=== PATIENT | female | born 1985 | race African-American/Black ===

== ENCOUNTER 2016-05-21 10:48 | Emergency (ER) | payer MEDICAID ==
[2016-05-21 13:21] LABS: CREATININE - SERUM 0.7 mg/dL (0.6-1.3)
== END 2016-05-21 15:24 | disposition home or self-care (01) ==
LOC: D.ER 10:48
PROVIDERS: Physician Assistant
DX: R07.81 Pleurodynia (principal)

== ENCOUNTER → 2018-06-10 07:57 | Outpatient (CLI) | payer MEDICAID ==
[~2018-06-10 07:57] MED LIST: TAMIFLU75 MG PO
== END | disposition home or self-care (01) ==
LOC: D.MRI 06-06 08:30
DX: M25.561 Pain in right knee (principal)

== ENCOUNTER 2018-06-17 09:53 | Emergency (ER) | payer MEDICAID ==
[~2018-06-17] VITALS: Ht 154.9 cm; Wt 69.5 kg
[2018-06-17 10:13] VITALS: BP 128/82; Ht 154.9 cm; Wt 69.5 kg
[2018-06-17] MEDS ORDERED: TAMIFLU75 MG PO (11:55)
== END 2018-06-17 13:00 | disposition home or self-care (01) ==
LOC: D.ER 09:53
DX: J00 Acute nasopharyngitis [common cold] (principal); R05 Cough; R09.89 Other specified symptoms and signs involving the circulatory and respiratory systems

== ENCOUNTER 2018-09-30 05:55 | Emergency (ER) | payer MEDICAID ==
[2018-09-30 05:59] VITALS: BP 118/66; BMI 28.9
[2018-09-30] MEDS ORDERED: CYCLOBENZAPRINE10 MG PO (06:11)
[2018-09-30 06:43] LABS: APPEARANCE HAZY (CLEAR); BILIRUBIN NEGATIVE (NEGATIVE); COLOR YELLOW (YELLOW); GLUCOSE NEGATIVE (NEGATIVE); KETONE NEGATIVE (NEGATIVE); NITRITE NEGATIVE (NEGATIVE); PROTEIN NEGATIVE (NEGATIVE); SPECIFIC GRAVITY 1.015 (1.005-1.020); UROBILINOGEN NORMAL (NORMAL)
[2018-09-30 07:10] LABS: HCG URINE NEGATIVE (NEGATIVE)
[2019-01-08 10:35] VITALS: BMI 32.6
== END 2018-09-30 08:26 | disposition home or self-care (01) ==
LOC: D.ER 05:55
PROVIDERS: Family Medicine
DX: S29.012A Strain of muscle and tendon of back wall of thorax, initial encounter (principal); X58.XXXA Exposure to other specified factors, initial encounter; Y93.89 Activity, other specified; Y92.89 Other specified places as the place of occurrence of the external cause

== ENCOUNTER 2019-01-08 08:20 | Day surgery (SDC) | payer MEDICAID ==
[2019-01-07 14:25] LABS: BASOPHILS 0.3 % (0-2); EOSINOPHILS 0.5 % (0-7); HEMOGLOBIN 12.3 g/dL (12-16); IMMATURE GRANULOCYTES 0.3 % (0-5); LYMPHOCYTES 32.2 % (15-50); MCH 30.8 pg (26.0-34.0); MCHC 34.2 g/dL (31.0-37.0); MEAN PLATELET VOLUME 11.1 fL (7.4-10.4); MONOCYTES 9.7 % (2-11); PLATELET COUNT 187 10x3/uL (130-400); RDW 12.8 % (11.5-14.5); WBC 6.4 10x3/uL (4.8-10.8)
[~2019-01-08] VITALS: Ht 157.5 cm; Wt 80.7 kg
--- NOTE | ~2019-01-08 | OP ---
PATIENT NAME: JORDYN RIVAS MEDICAL RECORD: [id number] :85 LOCATION:D.OPS ADMISSION DATE: SURGEON: KARIE GODFREY DO DATE OF OPERATION: 01/08/2019 PREOPERATIVE DIAGNOSIS: Missed . POSTOPERATIVE DIAGNOSIS: Missed . PRIMARY SURGEON: Karie Godfrey DO ANESTHESIA: Juno Grant CRNA PROCEDURE: Suction dilation and curettage. FINDINGS: Normal appearing external genitalia, normal appearing vaginal vault. SPECIMENS: Products of conception. ESTIMATED BLOOD LOSS: 5 cc. IV FLUIDS: 650 cc. COMPLICATIONS: None. CONDITION: Stable. DESCRIPTION OF PROCEDURE: The risks, benefits, alternatives and indications of the procedure were discussed with the patient. She voiced the understanding of the procedure and signed the consent. She was taken to the OR where general anesthesia was administered and found to be adequate. She was placed in the dorsal lithotomy position. She was prepped and draped in the normal sterile fashion. A speculum was placed in the posterior aspect of the vagina and a single tooth tenaculum was used to grasp the anterior lip of the cervix. The cervix was dilated to accommodate an 8 mm curved suction curette. A clockwise suction curettage was performed and products of conception were noted being removed from the uterus. A gentle sharp curettage was performed to ensure all products of conception were removed from the uterus. One more pass of the suction curette was performed until no products of conception were noted. All the suction curette was removed from the uterus. The tenaculum was removed from the cervix. Mild bleeding noted from the right tenaculum site, which was hemostatic with the application of silver nitrate. Otherwise, hemostasis was adequate. All other instruments were removed from the vagina. All lap, sponge, needle, and instrument counts were correct times 2. The patient tolerated the procedure well and she was taken to recovery room in stable condition. TRANSINT:[id number] Voice Confirmation ID: [id number] DOCUMENT ID: [id number] OPERATIVE REPORT [id number] JORDYN RIVAS KARIE GODFREY DO CC: [id number] DICTATION DATE: 01/08/19 1244 ACCOUNTS RECEIVABLE ACCOUNTANT: 01/08/19 1322 [facility] [address] [place] [address]
[~2019-01-08 08:20] MED LIST changes: +CYCLOBENZAPRINE10 MG PO
[2019-01-08 10:35] VITALS: BP 93/43; Ht 157.5 cm; Wt 80.7 kg
--- NOTE | 2019-01-08 15:34 | NUR ---
1345 MEDICATED WITH TYLENOL PER REQUEST FOR PAIN. 1445 PAIN EASING VOIDED
== END 2019-01-08 14:45 | disposition home or self-care (01) ==
LOC: D.OPS 08:20 → D.PAN 10:45 → D.OPS 10:45
PROVIDERS: ATTEND Student in an Organized Health Care Education/Training Program
DX: O02.1 Missed abortion (principal)

== ENCOUNTER → 2019-07-02 07:37 | Outpatient (CLI) | payer MEDICAID ==
[2019-01-08 10:35] VITALS: BMI 32.6
== END | disposition home or self-care (01) ==
LOC: D.RAD 07:37 → D.MRI 09:00
PROVIDERS: ATTEND Orthopaedic Surgery
DX: S49.91XA Unspecified injury of right shoulder and upper arm, initial encounter (principal); X58.XXXA Exposure to other specified factors, initial encounter

== ENCOUNTER 2019-08-10 16:40 | Emergency (ER) | payer MEDICAID ==
[2019-08-10 16:46] VITALS: Ht 157.5 cm
[2019-08-10 17:05] LABS: BASOPHILS 0.2 % (0-2); EOSINOPHILS 0.2 % (0-7); HEMOGLOBIN 14.6 g/dL (12-16); IMMATURE GRANULOCYTES 0.4 % (0-5); LYMPHOCYTES 26.4 % (15-50); MCH 30.7 pg (26.0-34.0); MCHC 33.2 g/dL (31.0-37.0); MCV 92.6 fL (80.0-100.0); MEAN PLATELET VOLUME 10.9 fL (7.4-10.4); MONOCYTES 10.3 % (2-11); NEUTROPHILS 62.5 % (40-80); RBC 4.75 10x6/uL (4.00-5.40); RDW 12.4 % (11.5-14.5); WBC 8.5 10x3/uL (4.8-10.8)
[2019-08-10 17:06] LABS: PLATELET COUNT 242 10x3/uL (130-400)
[2019-08-10 17:09] LABS: BILIRUBIN NEGATIVE (NEGATIVE); GLUCOSE NEGATIVE (NEGATIVE); KETONE LARGE mg/dL (NEGATIVE); NITRITE NEGATIVE (NEGATIVE); UROBILINOGEN NORMAL (NORMAL)
[2019-08-10 17:11] LABS: BACTERIA MANY /hpf (NEGATIVE); RED CELLS - URINE 0-5 /hpf (0-5); WHITE CELLS - URINE 0-5 /hpf (NEGATIVE)
[2019-08-10 17:17] LABS: CALC OSMOLALITY 263 mosm/kg (275-300); CALCIUM 9.5 mg/dL (8.5-10.1); CARBON DIOXIDE 25.3 mmol/L (21.0-32.0); CHLORIDE - SERUM 96 mmol/L (98-107); CREATININE - SERUM 0.9 mg/dL (0.6-1.3); GLUCOSE 98 mg/dL (74-106); POTASSIUM - SERUM 3.2 mmol/L (3.5-5.1); SODIUM 132 mmol/L (136-145); UREA NITROGEN 11 mg/dL (7-18); eGFR NON AFRICAN AMERICAN 76 mL/min (90-120)
[2019-08-10 17:48] LABS: ALBUMIN 4.2 g/dL (3.4-5.0); ALKALINE PHOSPHATASE 54 U/L (30-120); ALT (SGPT) 19 U/L (10-68); BILIRUBIN - TOTAL 0.59 mg/dL (0.2-1.3); HCG - QUANTITATIVE (MATERNAL) 88877 mIU/mL; PROTEIN - SERUM 8.7 g/dL (6.4-8.2)
[2019-08-10] MEDS ORDERED: ZOFRAN ODT4 MG/UDTAB PO (18:19)
[2019-08-10] MEDS ORDERED: KEFLEX500 MG PO (18:19)
[2019-08-10 19:15] VITALS: BP 118/79
== END 2019-08-10 19:17 | disposition home or self-care (01) ==
LOC: D.ER 16:40
PROVIDERS: Family Medicine
DX: O21.1 Hyperemesis gravidarum with metabolic disturbance (principal); Z3A.09 9 weeks gestation of pregnancy; F41.9 Anxiety disorder, unspecified

== ENCOUNTER 2019-08-14 10:48 | Observation (INO) | payer MEDICAID ==
[~2019-08-14] VITALS: Ht 157.5 cm; Wt 74.4 kg
[~2019-08-14 10:48] MED LIST changes: +KEFLEX500 MG PO; +ZOFRAN ODT4 MG/UDTAB PO
[2019-08-14 11:29] LABS: BASOPHILS 0.6 % (0-2); EOSINOPHILS 0.4 % (0-7); HEMATOCRIT 40.8 % (36.0-48.0); HEMOGLOBIN 13.5 g/dL (12-16); IMMATURE GRANULOCYTES 0.2 % (0-5); LYMPHOCYTES 30.1 % (15-50); MCH 30.6 pg (26.0-34.0); MCHC 33.1 g/dL (31.0-37.0); MCV 92.5 fL (80.0-100.0); MEAN PLATELET VOLUME 10.8 fL (7.4-10.4); MONOCYTES 9.5 % (2-11); NEUTROPHILS 59.2 % (40-80); PLATELET COUNT 225 10x3/uL (130-400); RBC 4.41 10x6/uL (4.00-5.40); RDW 12.3 % (11.5-14.5); WBC 5.5 10x3/uL (4.8-10.8)
[2019-08-14 11:35] LABS: CALC OSMOLALITY 265 mosm/kg (275-300); CALCIUM 8.7 mg/dL (8.5-10.1); CARBON DIOXIDE 23.9 mmol/L (21.0-32.0); CHLORIDE - SERUM 97 mmol/L (98-107); CREATININE - SERUM 0.7 mg/dL (0.6-1.3); GLUCOSE 91 mg/dL (74-106); POTASSIUM - SERUM 3.2 mmol/L (3.5-5.1); SODIUM 134 mmol/L (136-145); UREA NITROGEN 7 mg/dL (7-18); eGFR NON AFRICAN AMERICAN > 90 mL/min (90-120)
[2019-08-14 11:41] LABS: ALBUMIN 3.9 g/dL (3.4-5.0); ALKALINE PHOSPHATASE 47 U/L (30-120); ALT (SGPT) 17 U/L (10-68); BILIRUBIN - TOTAL 0.54 mg/dL (0.2-1.3); LIPASE 52 U/L (73-393); PROTEIN - SERUM 7.7 g/dL (6.4-8.2)
[2019-08-14 13:19] VITALS: BP 120/60
[2019-08-14 13:25] LABS: BACTERIA MODERATE /hpf (NEGATIVE); BILIRUBIN NEGATIVE (NEGATIVE); GLUCOSE NEGATIVE (NEGATIVE); KETONE LARGE mg/dL (NEGATIVE); NITRITE NEGATIVE (NEGATIVE); RED CELLS - URINE RARE /hpf (0-5); SPECIFIC GRAVITY 1.015 (1.005-1.020); UROBILINOGEN 4 mg/dL (NORMAL); WHITE CELLS - URINE 0-5 /hpf (NEGATIVE)
[2019-08-14 13:49] LABS: UDS - AMPHET NEGATIVE QUAL (NEGATIVE); UDS - BARB NEGATIVE QUAL (NEGATIVE); UDS - BENZO NEGATIVE QUAL (NEGATIVE); UDS - COCAINE NEGATIVE QUAL (NEGATIVE); UDS - OPIATE NEGATIVE QUAL (NEGATIVE); UDS - PCP NEGATIVE QUAL (NEGATIVE); UDS - THC POSITIVE QUAL (NEGATIVE)
--- NOTE | 2019-08-14 14:55 | NUR ---
SPOKE WITH LAB, TECH STATED BLOOD ON THIS PATIENT WAS IN THE LAB AND COULD BE USED TO PERFORM THE FOLLOWING TEST.
--- NOTE | 2019-08-14 15:29 | NUR ---
PT RECEIVED FROM U/S VIA W/C TO ROOM 1278. PT TRANSFERS FROM W/C TO BED AMBULATORY WITHOUT ASSIST. PT VOMITING, DENIES ANY DRUG ALLERGIES. WILL NOTIFY MD PT STILL VOMITING.
--- NOTE | 2019-08-14 15:38 | NUR ---
DR GODFREY PHONED WITH IMMEDIATE CALLBACK. REPORT GIVEN. ORDERS RECEIVED.
[2019-08-14 15:51] VITALS: BP 123/64
--- NOTE | 2019-08-14 15:51 | NUR ---
NS WITH KCL D/C'D PER ORDER. FLUSHED. PHENERGAN ADMIN SLOW IVP ORDERED. FLUSHED WITH 20ML NS. PT DENIES FEELING DIZZY, WANTS UP TO BR TO VOID AND FOR PERICARE FROM URINE LEAKAGE WITH VOMITING. PT TO BR TO CLEAN SELF, DENIES NEED FOR ASSIST. PT INSTRUCTED TO PULL CORD IF DIZZY OR IN NEED OF ASSIST. UNDERSTANDING VERBALIZED.
--- NOTE | 2019-08-14 15:51 | NUR ---
VSS, SEE FLOWSHEET.
--- NOTE | 2019-08-14 16:20 | NUR ---
DR GODFREY GIVES VERBAL ORDERS FOR PROTONIX DAILY AND TSH LAB TO BE DRAWN. ORDER TO CALL WITH U/S WHEN RESULTED.
--- NOTE | 2019-08-14 16:21 | NUR ---
DR GODFREY TO PT'S ROOM FOR ROUNDING, DISCUSSING POC.
--- NOTE | 2019-08-14 16:28 | NUR ---
DR GODFREY PHONED WITH U/S REPORT. NO NEW ORDERS RECEIVED.
[2019-08-14 16:56] VITALS: BP 123/64; Ht 157.5 cm; Wt 74.4 kg
--- NOTE | 2019-08-14 17:05 | NUR ---
ADMISSION ASSESSMENT AND HISTORY COMPLETED. PT PROVIDED WITH WARM BLANKET PER REQUEST, STATES SHE FEELS MUCH BETTER AFTER PHENERGAN. PT LYING IN BED ON LEFT SIDE, LIGHTS DIMMED FOR REST. SRUx2, CL IN REACH. PT INSTRUCTED TO CALL FOR ANY NEEDS. WILL CONT TO MONITOR.
--- NOTE | 2019-08-14 18:20 | NUR ---
LIZBET, RN TO PT ROOM FOR IV ALARM, IV PUMP FIXED. PT DENIES NEEDS AT THIS TIME. SRUx2, CL IN REACH.
[2019-08-14 20:08] VITALS: BP 109/55
--- NOTE | 2019-08-14 20:40 | NUR ---
ASSESSMENT COMPLETED. MVU IVF PAUSED, D51/2 NS UP TO INFUSE PER ORDER OF PHARMACY TO ALLOW FOR FLAGYL, AND REGLAN INFUSING, MV FLUID TUBING DISCONNECTED FROM SL AND SL FLUSHED, PRIOR TO HANGING D1/2 NS AND GIVING REGLAN FOLLOWED BY FLAGYL. PT C/O NAUSEA, COMFORT MEASURES GIVEN
--- NOTE | 2019-08-14 21:43 | NUR ---
flagyl completed infusion, so d5 1/2 ns paused and mv ivf restarted at 125ml/hr
--- NOTE | 2019-08-14 22:49 | NUR ---
room check, resting quietly, respirations even and unlabored, eyes closed, ivf infusing at 125ml/hr via pump, did not disturb
--- NOTE | 2019-08-14 23:57 | NUR ---
phenergan given iv following pausing of ivf, flushing line w/ ns before and after administration. pt resting quietly, respirations even and unlabored
--- NOTE | 2019-08-15 01:30 | NUR ---
at bedside, pt resting quietly w/ covers head, respirations even and unlabored. w/o signs of distress. did not disturb
--- NOTE | 2019-08-15 02:22 | NUR ---
multi vitamin ivf completed, d5 1/2 ns infusing at 125ml/hr. pt arouses easily to touch, denies needs at this time
--- NOTE | 2019-08-15 04:30 | NUR ---
room check, resting quietly w/ eyes closed, respirations even and unlabored, did not disturb
[2019-08-15 07:55] VITALS: BP 95/51
--- NOTE | 2019-08-15 08:10 | NUR ---
TO PT'S ROOM FOR AM ASSESSMENT, PT IS LYING ON HER RIGHT SIDE, ASLEEP, AWAKENED FOR AM ASSESSMENT. PT HAS IV TO LEFT AC, INFUSING IVF'S PER ORDER. NO REDNESS OR SWELLING NOTED TO IV SITE, DENIES PAIN TO IV SITE. PT PROVIDED WITH EMESIS BAGS X 2. PT HAS NOT VOMITED ON THIS SHIFT. PT STATES "I FEEL A LITTLE BETTER THIS MORNING, BUT I HAVE BEEN PUKING FOR 3 WEEKS. I WENT TO THE ER ON SUNDAY AND THEY GAVE ME 2 BAGS OF FLUIDS, AND SENT ME HOME ON . IT WORKED FOR A COUPLE OF DAYS, BUT THEN IT QUIT WORKING." SEE FLOWSHEET FOR AM ASSESSMENT. PT PROVIDED WITH TOOTHBRUSH/PASTE, BABY SHAMPOO, WASHCLOTHS, AND GOWN. SR UP X2, CALL LIGHT AND PHONE WITHIN REACH.
--- NOTE | 2019-08-15 08:10 | NUR ---
NATHALIE FROM SURGERY CALLS TO UNIT, TELEPHONE ORDER RECEIVED TO ADMINISTER PEPCID 20 MG IV Q 12 H, DR. ZEE.
--- NOTE | 2019-08-15 08:25 | NUR ---
PT CALLS OUT [employer] AND REQUESTS TO GET IN THE SHOWER. TO ROOM, IV SL AND SECURED.
--- NOTE | 2019-08-15 09:30 | NUR ---
DR. ZEE TO ROOM, SPEAKING WITH PT. WILL START NEW PO MEDICATION REGIMEN, PT AGREES. SR UP X 2, CALL LIGHT AND PHONE WITHIN REACH.
--- NOTE | 2019-08-15 18:30 | NUR ---
PT UP TO SHOWER, CLEAN LINENS PROVIDED. BED LINENS CHANGED. PT HAS HAD SMALL AMOUNT OF CLEAR EMESIS INTO EMESIS BAG.
[2019-08-15 19:55] VITALS: BP 127/61
--- NOTE | 2019-08-15 20:24 | NUR ---
assessment completed, pt states is feeling much relief tonight. madison pain, nausea, or vomiting since around 0630 this morning. able to eat and drink and keep things down w/o difficulty. informed she would rec antiemtics as scheduled to prevent reoccurance tonight. pt agreeable to all procedures.
--- NOTE | 2019-08-15 21:35 | NUR ---
AT BEDSIDE. DENIES DISCOMFORT, IVF INFUSING AT 125ML/HR, DENIES NEEDS AT THIS TIME
--- NOTE | 2019-08-15 22:45 | NUR ---
resting quietly in right lateral position, eyes closed, respirations even and unlabored. w/o signs of distress. did not disturb
--- NOTE | 2019-08-16 00:05 | NUR ---
in room for dialysis biomed technician. pt restful. denies need for further intervention
--- NOTE | 2019-08-16 02:30 | NUR ---
room check, pt resting quietly, eyes closed, arouses easily to name called.
--- NOTE | 2019-08-16 04:10 | NUR ---
resting quietly in right lateral position, respirations even and unlabored. did not disturb
--- NOTE | 2019-08-16 06:37 | NUR ---
continues resting quietly w/o c/o pain or discomfort, arouses easily to name called. no needs voiced at this time.
[2019-08-16 07:02] VITALS: BP 105/57
--- NOTE | 2019-08-16 07:02 | NUR ---
AM ASSESSMENT COMPLETED, TOLERATING LIQUIDS WITHOUT DIFFICULTY, RESP EVEN AND UNLABORED, HEART RRR, LUNGS CTAB, ABD SOFT NONDISTENDED, NO TENDERNESS TO LIGHT PALPATION, BOWEL SOUNDS NORMOACTIVE, VOIDING WITHOUT DIFFICULTY, PASSING FLATUS, C[place] FREELY, NEGATIVE DANISHA'S SIGN B LE, PEDAL PULSES STRONG/=+2 B. REVIEWED PLAN OF CARE, STATES LOOKING FORWARD TO GOING HOME TODAY, PT STATES UNDERSTANDING OF ALL INFORMATION REVIEWED. CALL LIGHT IN EASY REACH, BED IN LOW POSITION, BED BRAKES LOCKED, SIDE RAILS UP X2. WILL MONITOR FOR CHANGE IN CONDITION.
--- NOTE | 2019-08-16 08:48 | NUR ---
dr iraheta rounding and to pt room; plan of care reviewed, pt states understanding. nad noted. will monitor.
[2019-08-16] MEDS ORDERED: UNISOM SLEEP AI25 MG PO (09:11)
[2019-08-16] MEDS ORDERED: ZOFRAN ODT4 MG/UDTAB PO (09:13)
[2019-08-16] MEDS ORDERED: VITAMIN B-625 MG PO (09:14)
[2019-08-16] MEDS ORDERED: PEPCID40 MG (09:24)
--- NOTE | 2019-08-16 09:28 | NUR ---
ROUNDS COMPLETED, PT LYING IN BED WITHOUT C/O N/V OR ANY DISTRESS. STATES DAUGHTER IS COMING TO HELP HER SHOWER AND THEN SHE WOULD LIKE TO GO HOME. ADMINISTERED PRESCRIBED MEDICATIONS DUE AT THIS TIME. WILL MONITOR FOR NEEDS AND CONCERNS OR CHANGE IN CONDITION.
--- NOTE | 2019-08-16 10:41 | NUR ---
piv discontinued, catheter tip intact, pressure dressing applied to left a/c, pt tolerates procedure well. reviewed discharge instructions and pt is aware that her medication were called into her pharmacy of choice per dr iraheta, reviewed medication orders and handouts provided on bacterial vaginosis and hyperemesis gravidarum. pt states understanding of all information provided.
--- NOTE | 2019-08-16 10:52 | NUR ---
discharged pt via wheelchair to private auto in care of family member. nad noted at this time.
== END 2019-08-16 10:45 | disposition home or self-care (01) ==
LOC: D.ER 10:48 → OBSVTIME 13:46 → D.LD 13:46
PROVIDERS: Family Medicine; ADMIT Student in an Organized Health Care Education/Training Program; ATTEND Student in an Organized Health Care Education/Training Program
DX: O21.9 Vomiting of pregnancy, unspecified (principal); Z3A.08 8 weeks gestation of pregnancy; O30.001 Twin pregnancy, unspecified number of placenta and unspecified number of amniotic sacs, first trimester

== ENCOUNTER 2019-08-22 18:27 | Observation (INO) | payer MEDICAID ==
[~2019-08-22] VITALS: Ht 157.5 cm; Wt 75.9 kg
[~2019-08-22 18:27] MED LIST changes: +PEPCID40 MG; +UNISOM SLEEP AI25 MG PO; +VITAMIN B-625 MG PO
[2019-08-22 19:31] LABS: BASOPHILS 0.1 % (0-2); EOSINOPHILS 0.1 % (0-7); HEMATOCRIT 44.5 % (36.0-48.0); HEMOGLOBIN 14.7 g/dL (12-16); IMMATURE GRANULOCYTES 0.3 % (0-5); LYMPHOCYTES 28.9 % (15-50); MCH 30.7 pg (26.0-34.0); MCV 92.9 fL (80.0-100.0); MEAN PLATELET VOLUME 10.5 fL (7.4-10.4); MONOCYTES 8.6 % (2-11); RBC 4.79 10x6/uL (4.00-5.40); RDW 12.7 % (11.5-14.5); WBC 7.8 10x3/uL (4.8-10.8)
[2019-08-22 19:42] LABS: CALC OSMOLALITY 264 mosm/kg (275-300); CALCIUM 9.5 mg/dL (8.5-10.1); CHLORIDE - SERUM 96 mmol/L (98-107); CREATININE - SERUM 0.9 mg/dL (0.6-1.3); GLUCOSE 95 mg/dL (74-106); POTASSIUM - SERUM 3.5 mmol/L (3.5-5.1); SODIUM 133 mmol/L (136-145); UREA NITROGEN 11 mg/dL (7-18); eGFR NON AFRICAN AMERICAN 76 mL/min (90-120)
[2019-08-22 19:46] LABS: BILIRUBIN NEGATIVE (NEGATIVE); GLUCOSE NEGATIVE (NEGATIVE); KETONE LARGE mg/dL (NEGATIVE); NITRITE NEGATIVE (NEGATIVE); SPECIFIC GRAVITY 1.025 (1.005-1.020); UROBILINOGEN NORMAL (NORMAL)
[2019-08-22 19:47] LABS: RED CELLS - URINE OCC /hpf (0-5); WHITE CELLS - URINE 0-5 /hpf (NEGATIVE)
[2019-08-22 19:48] LABS: ALBUMIN 4.3 g/dL (3.4-5.0); ALKALINE PHOSPHATASE 50 U/L (30-120); ALT (SGPT) 32 U/L (10-68); BACTERIA MODERATE /hpf (NEGATIVE); BILIRUBIN - TOTAL 0.54 mg/dL (0.2-1.3); PROTEIN - SERUM 8.9 g/dL (6.4-8.2)
[2019-08-22 19:52] LABS: PLATELET COUNT 272 10x3/uL (130-400)
[2019-08-22 20:53] VITALS: BP 120/75
--- NOTE | 2019-08-22 20:53 | NUR ---
PT RESTING ON LEFT LATERAL SIDE, NO SIGNS DISTRESS NOTED. PT DENIES CURRENT NEEDS. PILLOW PROVIDED FOR COMFORT AND LIGHTS DIMMED REQUESTED. CALL LIGHT IN REACH, BED LOW.
--- NOTE | 2019-08-22 21:25 | NUR ---
CALLED WITH INNEDIATE RETURN CALL REC'D. UA RESULTS GIVEN AT THIS TIME. INSTRUCTED TO GIVE. D 5 1/2 NS FOR ONE LITER, ZOFRAN 4 MG ODT Q4 HRS, AND B6 WITH UNISOM COMBO. Jacquie MCFARLANE RN
--- NOTE | 2019-08-22 21:45 | NUR ---
PT REC'D TO ROOM 1227 VIA WHEELCHAIR FRO ER WITH A DX OF HYPEREMESIS. SALOINE LOCK TO THE RT AC. SITE CLEAR. ADMISSION ASSESMENT COMPLETED AT THIS TIME. D5 1/2 NS STARTED TO THE RT AC. WILL CONTINUE TO MONITOR. Jacquie MCFARLANE RN
[2019-08-22 22:47] VITALS: BP 91/56; Ht 157.5 cm; Wt 75.9 kg
--- NOTE | 2019-08-23 00:02 | NUR ---
URINE REC'D AND TAKEN TO LAB. Jacquie MCFARLANE RN
[2019-08-23 00:22] LABS: BILIRUBIN NEGATIVE (NEGATIVE); GLUCOSE 1000 mg/dL (NEGATIVE); KETONE LARGE mg/dL (NEGATIVE); NITRITE NEGATIVE (NEGATIVE); SPECIFIC GRAVITY 1.015 (1.005-1.020); UROBILINOGEN NORMAL (NORMAL)
--- NOTE | 2019-08-23 00:23 | NUR ---
LAB CALLED WITH UA RESULTS AND NOTATION OF GLUCOSE. Jacquie MCFARLANE RN
--- NOTE | 2019-08-23 01:25 | NUR ---
DR CID CALLED UNIT AND ORDER REC'D TO RUND 5 1/2 NS AT 125-150 ML/HR AND REPEAT UA AT 0500. ALSO INSTRUCTED TO OFFER PATIENT CRASKERS AND SIPS OF LIQUIDS. Jacquie MCFARLANE RN
--- NOTE | 2019-08-23 01:30 | NUR ---
0225 PT REC'D IN BED ASLEEP AT THIS TIME. TOLERATED CRACKERS AND SPRITE AT THIS TIME. NO NAUSEA/VOMITING NOTED. Jacquie MCFARLANE RN
--- NOTE | 2019-08-23 03:30 | NUR ---
PT REC'D IN BED ASLEEP AT THIS TIME. NO NAUSEA NOTED. TOLERATED CRACKERS. Jacquie MCFARLANE RN
[2019-08-23 05:01] VITALS: BP 89/51
[2019-08-23 05:52] LABS: BILIRUBIN NEGATIVE (NEGATIVE); GLUCOSE NEGATIVE (NEGATIVE); KETONE NEGATIVE (NEGATIVE); NITRITE NEGATIVE (NEGATIVE); UROBILINOGEN NORMAL (NORMAL)
[2019-08-23 05:54] LABS: BASOPHILS 0.1 % (0-2); EOSINOPHILS 0.5 % (0-7); HEMATOCRIT 38.1 % (36.0-48.0); HEMOGLOBIN 12.2 g/dL (12-16); IMMATURE GRANULOCYTES 0.3 % (0-5); LYMPHOCYTES 31.7 % (15-50); MCH 29.9 pg (26.0-34.0); MCV 93.4 fL (80.0-100.0); MEAN PLATELET VOLUME 10.6 fL (7.4-10.4); MONOCYTES 9.8 % (2-11); NEUTROPHILS 57.6 % (40-80); PLATELET COUNT 230 10x3/uL (130-400); RBC 4.08 10x6/uL (4.00-5.40); RDW 12.8 % (11.5-14.5); WBC 7.5 10x3/uL (4.8-10.8)
[2019-08-23 06:24] LABS: ALKALINE PHOSPHATASE 42 U/L (30-120); ALT (SGPT) 40 U/L (10-68); BILIRUBIN - TOTAL 0.45 mg/dL (0.2-1.3); CALCIUM 8.2 mg/dL (8.5-10.1); CARBON DIOXIDE 24.9 mmol/L (21.0-32.0); CHLORIDE - SERUM 102 mmol/L (98-107); GLUCOSE 108 mg/dL (74-106); POTASSIUM - SERUM 3.7 mmol/L (3.5-5.1); SODIUM 136 mmol/L (136-145)
[2019-08-23 06:25] LABS: CALC OSMOLALITY 270 mosm/kg (275-300); CREATININE - SERUM 0.6 mg/dL (0.6-1.3); UREA NITROGEN 7 mg/dL (7-18); eGFR NON AFRICAN AMERICAN > 90 mL/min (90-120)
[2019-08-23 06:26] LABS: ALBUMIN 3.2 g/dL (3.4-5.0); PROTEIN - SERUM 6.5 g/dL (6.4-8.2)
--- NOTE | 2019-08-23 06:30 | NUR ---
CALLED AT THIS TIME. UA REPORT GIVEN AND ORDER TO DISCHARGE PT HOME WITH A PRESCRIPTION FOR ZOFRAN ODT 4 MG Q 6 HOURS. Jacquie MCFARLANE RN
--- NOTE | 2019-08-23 06:35 | NUR ---
PRESCRIPTION CALLED IN TO [facility] AT THIS TIME. Jacquie MCFARLANE RN
[2019-08-23] MEDS ORDERED: ZOFRAN ODT4 MG/UDTAB PO (06:41)
--- NOTE | 2019-08-23 07:33 | NUR ---
DISCHARGE INSTRUCTINS REVIEWED AT THIS TIME. UNDERSTANDING VERBALIZED. COPUES OF DISCHARGE PAPERWORK PLACED IN PT CHART AND PT PROVIDED WITH COPIES. Jacquie MCFARLANE RN
--- NOTE | 2019-08-23 07:41 | NUR ---
PT DISCHARGED AMBULATORY AT THIS TIME. NO DISTRESS NOTED. Jacquie MCFARLANE RN
== END 2019-08-23 07:41 | disposition home or self-care (01) ==
LOC: D.ER 18:27 → OBSVTIME 20:30 → D.LD 20:30
PROVIDERS: Family Medicine; ADMIT Obstetrics & Gynecology; ATTEND Obstetrics & Gynecology
DX: O21.0 Mild hyperemesis gravidarum (principal); Z3A.09 9 weeks gestation of pregnancy

== ENCOUNTER 2020-01-01 10:09 | Outpatient (CLI) | payer BC ==
[2019-08-22 22:47] VITALS: BMI 30.6
[2020-01-01 13:11] LABS: BILIRUBIN NEGATIVE (NEGATIVE); KETONE NEGATIVE (NEGATIVE); NITRITE NEGATIVE (NEGATIVE); UROBILINOGEN NORMAL (NORMAL)
[2020-01-01 13:13] LABS: BACTERIA MODERATE /HPF (NONE SEEN); WHITE CELLS - URINE 0-5 /hpf (0-5)
== END 2020-01-01 11:37 | disposition home or self-care (01) ==
LOC: D.LDO 10:09
PROVIDERS: ATTEND Student in an Organized Health Care Education/Training Program
DX: O30.90 Multiple gestation, unspecified, unspecified trimester (principal)

== ENCOUNTER 2020-02-10 06:44 | Inpatient (IN) | payer MEDICAID ==
[~2020-02-10] VITALS: Ht 157.5 cm; Wt 77.6 kg
[2020-02-10 07:27] LABS: HEMATOCRIT 35.2 % (36.0-48.0); HEMOGLOBIN 11.6 g/dL (12-16); MCH 30.7 pg (26.0-34.0); MCV 93.1 fL (80.0-100.0); MEAN PLATELET VOLUME 10.6 fL (7.4-10.4); RBC 3.78 10x6/uL (4.00-5.40); RDW 13.8 % (11.5-14.5)
[2020-02-10 07:35] LABS: UDS - AMPHET NEGATIVE QUAL (NEGATIVE); UDS - BARB NEGATIVE QUAL (NEGATIVE); UDS - BENZO NEGATIVE QUAL (NEGATIVE); UDS - COCAINE NEGATIVE QUAL (NEGATIVE); UDS - OPIATE NEGATIVE QUAL (NEGATIVE); UDS - PCP NEGATIVE QUAL (NEGATIVE); UDS - THC NEGATIVE QUAL (NEGATIVE)
[2020-02-10 07:39] LABS: BILIRUBIN NEGATIVE (NEGATIVE); KETONE NEGATIVE (NEGATIVE); NITRITE NEGATIVE (NEGATIVE); UROBILINOGEN NORMAL mg/dL (< 2)
[2020-02-10 07:40] LABS: BACTERIA FEW HPF (NONE SEEN); WHITE CELLS - URINE 25-50 HPF (0-4)
[2020-02-10 07:44] VITALS: BP 120/66; Ht 157.5 cm; Wt 77.6 kg
[2020-02-10 08:02] LABS: CALC OSMOLALITY 267 mosm/kg (275-300); CALCIUM 9.1 mg/dL (8.5-10.1); CARBON DIOXIDE 22.4 mmol/L (21.0-32.0); CHLORIDE - SERUM 104 mmol/L (98-107); CREATININE - SERUM 0.5 mg/dL (0.6-1.3); GLUCOSE 78 mg/dL (74-106); POTASSIUM - SERUM 3.9 mmol/L (3.5-5.1); SODIUM 136 mmol/L (136-145); UREA NITROGEN 5 mg/dL (7-18); eGFR NON AFRICAN AMERICAN > 90 mL/min (90-120)
== END 2020-02-10 11:36 | disposition short-term general hospital (02) | DRG 833 ==
LOC: D.LDO 06:44 → D.LD 07:10
PROVIDERS: Obstetrics & Gynecology; ADMIT Student in an Organized Health Care Education/Training Program; ATTEND Student in an Organized Health Care Education/Training Program
DX: O60.03 Preterm labor without delivery, third trimester (principal); Z3A.33 33 weeks gestation of pregnancy; O30.033 Twin pregnancy, monochorionic/diamniotic, third trimester